=== PATIENT | male | born 1945 | race Caucasian/White ===

== ENCOUNTER 2016-08-28 20:47 | Inpatient (IN) | payer MEDICARE, BC ==
[2016-08-28 21:00] LABS: Glucose,Whole Blood 162 mg/dL (75-99)
--- NOTE | 2016-08-28 21:00 | ED ---
SOB HPI - General Stated Complaint: Difficulty Breathing Time Seen by Provider: 08/28/16 20:49 Source: EMS Mode of arrival: EMS Limitations: altered mental status - History of Present Illness Initial Comments: EMS was called for patient short of breath. On arrival, the patient is acutely dyspneic and not able to give history. MD Complaint: shortness of breath -: unknown Improves With: nothing Worsens With: nothing Treatments Prior to Arrival: oxygen, NIPPV - Related Data Home Medications Medication Instructions Recorded Confirmed Metoprolol Tartrate [Lopressor] 50 mg PO BID 10/09/14 08/28/16 Simvastatin [Zocor] 20 mg PO HS 10/09/14 08/28/16 Ipratropium-Albuterol Nebulize 3 ml INHALATION RT-TID PRN 02/12/16 08/28/16 [Duoneb 0.5 mg-3 mg/3 ml Soln] Ammonium Lactate Cream [Lac-Hydrin 1 applic TOPICAL DAILY 08/28/16 08/28/16 12% Cream] Beclomethasone Dip 80 Mcg/Puff 1 puff INHALATION RT-BID PRN 08/28/16 08/28/16 [Qvar 80 mcg] Ciprofloxacin HCl [Cipro] 500 mg PO BID 08/28/16 08/28/16 Triamcinolone 0.1% Ointment 1 applic TOPICAL DAILY 08/28/16 08/28/16 [Kenalog 0.1% Ointment] Allergies Allergy/AdvReac Type Severity Reaction Status Date / Time Penicillins Allergy Unknown Verified 08/28/16 21:58 Childhood Review of Systems ROS Statement: Those systems with pertinent positive or pertinent negative responses have been documented in the HPI. ROS Other: All systems not noted in ROS Statement are negative. 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 Past Anesthesia/Blood Transfusion Reactions: Previous Problems w/ Anesthesia Additional Past Anesthesia/Blood Transfusion Reaction / Comment(s): "dont wake up very easy from anesthesia" Past Psychological History: No Psychological Hx Reported Smoking Status: Current every day smoker Past Alcohol Use History: None Reported Past Drug Use History: None Reported - Past Family History Mother Family Medical History: Cancer General Exam Limitations: altered mental status General appearance: obtunded, in distress, obese Head exam: Present: atraumatic, normocephalic Eye exam: Present: normal appearance. Absent: scleral icterus, conjunctival injection Neck exam: Present: normal inspection Respiratory exam: Present: respiratory distress, stridor, decreased breath sounds Cardiovascular Exam: Present: normal rhythm, tachycardia, normal heart sounds. Absent: systolic murmur, diastolic murmur, rubs, gallop GI/Abdominal exam: Present: soft, other (Exam limited by obesity). Absent: tenderness, guarding, rebound, mass Extremities exam: Present: normal capillary refill, pedal edema, other (Chronic stasis changes present). Absent: calf tenderness Back exam: Present: normal inspection. Absent: CVA tenderness (R), CVA tenderness (L) Neurological exam: Present: CN II-XII intact, other (Patient is somnolent but arousable to verbal stimuli. He is able to follow simple one step commands. Patient oriented 2 could not state the date.). Absent: motor sensory deficit Skin exam: Present: warm, dry, intact, other (Chronic stasis changes to the legs ). Absent: rash Course Vital Signs 08/28/16 08/28/16 08/28/16 20:56 21:00 21:23 Temperature 96.7 F L Pulse Rate 109 H 106 H Respiratory 22 22 Rate Blood Pressure 150/88 140/67 O2 Sat by Pulse 89 L 97 Oximetry 08/28/16 08/28/16 08/28/16 21:28 21:48 21:58 Temperature Pulse Rate 99 98 97 Respiratory 20 20 Rate Blood Pressure 100/56 107/55 100/60 O2 Sat by Pulse 91 L 91 L Oximetry 08/28/16 08/28/16 08/28/16 22:13 22:43 22:58 Temperature Pulse Rate 94 94 94 Respiratory 20 18 18 Rate Blood Pressure 110/56 107/58 116/64 O2 Sat by Pulse 91 L 91 L 90 L Oximetry 08/28/16 08/28/16 08/29/16 23:18 23:43 01:00 Temperature 100.1 F H 98.7 F Pulse Rate 92 102 H Respiratory 18 22 Rate Blood Pressure 106/56 106/53 O2 Sat by Pulse 92 L 92 L Oximetry 08/29/16 08/29/16 08/29/16 02:20 03:09 04:06 Temperature 99.6 F 98.7 F Pulse Rate 96 94 96 Respiratory 18 20 20 Rate Blood Pressure 90/53 117/72 113/67 O2 Sat by Pulse 86 L 91 L 98 Oximetry - Reevaluation(s) Reevaluation #1: 08/29/16 01:36 Following discussions with the patient's , which included the indications, risks and benefits of intubation, she states that the patient had made clear his belief that he did not want to have any type of machine life-support. I discussed that not intubating the patient at this point would result in his worsening respiratory condition and probably they state that he had made this clear and they agree with his wishes. I have discussed the patient with the solar sales advisor, and patient will be admitted for further treatment of his respiratory failure and pneumonia and COPD. at this point the elevated troponin appears related to patient's CHF. 08/29/16 01:39 Medical Decision Making - Lab Data Result diagrams: 08/28/16 20:57 08/28/16 20:57 Lab Results 08/28/16 08/28/16 08/28/16 Range/Units 20:54 20:57 20:57 WBC 8.3 (3.8-10.6) k/uL RBC 5.96 H (4.30-5.90) m/uL Hgb 18.7 H (13.0-17.5) gm/dL Hct 61.0 H* (39.0-53.0) % MCV 102.2 H (80.0-100.0) fL MCH 31.4 (25.0-35.0) pg MCHC 30.7 L (31.0-37.0) g/dL RDW 14.4 (11.5-15.5) % Plt Count 265 (150-450) k/uL Neutrophils % (Manual) 74.0 % Band Neutrophils % 12.0 % Lymphocytes % (Manual) 3.0 % Monocytes % (Manual) 11.0 % Neutrophils # (Manual) 7.1 (1.3-7.7) k/uL Lymphocytes # (Manual) 0.2 L (1.0-4.8) k/uL Monocytes # (Manual) 0.9 (0-1.0) k/uL Nucleated RBCs 0 (0-0) /100 WBC Manual Slide Review Performed Large Platelets Present Polychromasia Present Hypochromasia Marked Poikilocytosis Slight Macrocytosis Slight D-Dimer (<0.60) mg/L FEU Sample Site ABG pH (7.35-7.45) ABG pCO2 (35-45) mmHg ABG pO2 (83-108) mmHg ABG HCO3 (21-25) mmol/L ABG Total CO2 (19-24) mmol/L ABG O2 Saturation (94-97) % ABG Base Excess mmol/L FiO2 % Sodium 137 (137-145) mmol/L Potassium 5.5 H (3.5-5.1) mmol/L Chloride 95 L (98-107) mmol/L Carbon Dioxide 29 (22-30) mmol/L Anion Gap 13 mmol/L BUN 23 H (9-20) mg/dL Creatinine 1.07 (0.66-1.25) mg/dL Est GFR (MDRD) Af Amer >60 (>60 ml/min/1.73 sqM) Est GFR (MDRD) Non-Af >60 (>60 ml/min/1.73 sqM) Glucose 172 H (74-99) mg/dL POC Glucose (mg/dL) 162 H (75-99) mg/dL POC Glu Rumper ID Lindsay Owen Plasma Lactic Acid Ray (0.7-2.0) mmol/L Calcium 8.7 (8.4-10.2) mg/dL Magnesium 2.0 (1.6-2.3) mg/dL Total Bilirubin 2.3 H (0.2-1.3) mg/dL AST 63 H (17-59) U/L ALT 30 (21-72) U/L Alkaline Phosphatase 63 (38-126) U/L Troponin I (0.000-0.034) ng/mL NT-Pro-B Natriuret Pep pg/mL Total Protein 7.7 (6.3-8.2) g/dL Albumin 3.8 (3.5-5.0) g/dL 05/08/28/16 08/28/16 Range/Units 20:57 20:57 21:25 WBC (3.8-10.6) k/uL RBC (4.30-5.90) m/uL Hgb (13.0-17.5) gm/dL Hct (39.0-53.0) % MCV (80.0-100.0) fL MCH (25.0-35.0) pg MCHC (31.0-37.0) g/dL RDW (11.5-15.5) % Plt Count (150-450) k/uL Neutrophils % (Manual) % Band Neutrophils % % Lymphocytes % (Manual) % Monocytes % (Manual) % Neutrophils # (Manual) (1.3-7.7) k/uL Lymphocytes # (Manual) (1.0-4.8) k/uL Monocytes # (Manual) (0-1.0) k/uL Nucleated RBCs (0-0) /100 WBC Manual Slide Review Large Platelets Polychromasia Hypochromasia Poikilocytosis Macrocytosis D-Dimer (<0.60) mg/L FEU Sample Site rrad ABG pH 7.22 L (7.35-7.45) ABG pCO2 79 H* (35-45) mmHg ABG pO2 66 L (83-108) mmHg ABG HCO3 32 H (21-25) mmol/L ABG Total CO2 34 H (19-24) mmol/L ABG O2 Saturation 87.0 L (94-97) % ABG Base Excess 4.4 mmol/L FiO2 60 % Sodium (137-145) mmol/L Potassium (3.5-5.1) mmol/L Chloride (98-107) mmol/L Carbon Dioxide (22-30) mmol/L Anion Gap mmol/L BUN (9-20) mg/dL Creatinine (0.66-1.25) mg/dL Est GFR (MDRD) Af Amer (>60 ml/min/1.73 sqM) Est GFR (MDRD) Non-Af (>60 ml/min/1.73 sqM) Glucose (74-99) mg/dL POC Glucose (mg/dL) (75-99) mg/dL POC Glu Rumper ID Plasma Lactic Acid Ray (0.7-2.0) mmol/L Calcium (8.4-10.2) mg/dL Magnesium (1.6-2.3) mg/dL Total Bilirubin (0.2-1.3) mg/dL AST (17-59) U/L ALT (21-72) U/L Alkaline Phosphatase (38-126) U/L Troponin I 0.156 H* (0.000-0.034) ng/mL NT-Pro-B Natriuret Pep 4840 pg/mL Total Protein (6.3-8.2) g/dL Albumin (3.5-5.0) g/dL 08/28/16 08/29/16 08/29/16 Range/Units 21:58 01:10 01:34 WBC (3.8-10.6) k/uL RBC (4.30-5.90) m/uL Hgb (13.0-17.5) gm/dL Hct (39.0-53.0) % MCV (80.0-100.0) fL MCH (25.0-35.0) pg MCHC (31.0-37.0) g/dL RDW (11.5-15.5) % Plt Count (150-450) k/uL Neutrophils % (Manual) % Band Neutrophils % % Lymphocytes % (Manual) % Monocytes % (Manual) % Neutrophils # (Manual) (1.3-7.7) k/uL Lymphocytes # (Manual) (1.0-4.8) k/uL Monocytes # (Manual) (0-1.0) k/uL Nucleated RBCs (0-0) /100 WBC Manual Slide Review Large Platelets Polychromasia Hypochromasia Poikilocytosis Macrocytosis D-Dimer 1.64 H (<0.60) mg/L FEU Sample Site RIGHT RADIAL ABG pH 7.10 L* (7.35-7.45) ABG pCO2 106 H* (35-45) mmHg ABG pO2 87 (83-108) mmHg ABG HCO3 32 H (21-25) mmol/L ABG Total CO2 35 H (19-24) mmol/L ABG O2 Saturation 91.0 L (94-97) % ABG Base Excess 2.6 mmol/L FiO2 100 % Sodium (137-145) mmol/L Potassium (3.5-5.1) mmol/L Chloride (98-107) mmol/L Carbon Dioxide (22-30) mmol/L Anion Gap mmol/L BUN (9-20) mg/dL Creatinine (0.66-1.25) mg/dL Est GFR (MDRD) Af Amer (>60 ml/min/1.73 sqM) Est GFR (MDRD) Non-Af (>60 ml/min/1.73 sqM) Glucose (74-99) mg/dL POC Glucose (mg/dL) (75-99) mg/dL POC Glu Rumper ID Plasma Lactic Acid Ray 1.4 (0.7-2.0) mmol/L Calcium (8.4-10.2) mg/dL Magnesium (1.6-2.3) mg/dL Total Bilirubin (0.2-1.3) mg/dL AST (17-59) U/L ALT (21-72) U/L Alkaline Phosphatase (38-126) U/L Troponin I (0.000-0.034) ng/mL NT-Pro-B Natriuret Pep pg/mL Total Protein (6.3-8.2) g/dL Albumin (3.5-5.0) g/dL - EKG Data -: EKG Interpreted by Vt EKG shows normal: sinus rhythm, axis (Normal), intervals (The QT see is prolonged at 570 ms.), QRS complexes (Normal) Rate: tachycardia (Rate approximately 109 bpm) Interpretation: nonspecific ST-T wave changes Critical Care Time Critical Care Time: Yes (35 minutes) Disposition Clinical Impression: Congestive heart failure, Pneumonia, Respiratory failure, Polycythemia, Hyperkalemia, Elevated troponin I level Disposition: ADMITTED IP TO THIS HOSP Condition: Critical
[2016-08-28 21:08] LABS: Aty Lym Flag Slight; CH 30.9; CHCM 30.4; HDW 3.41; HGB 18.7 gm/dL (13.0-17.5); Hypochromasia Marked; MCH 31.4 pg (25.0-35.0); MCHC 30.7 g/dL (31.0-37.0); MCV 102.2 fL (80.0-100.0); Macrocytosis Slight; Poikilocytosis Slight; RBC 5.96 m/uL (4.30-5.90); RDW 14.4 % (11.5-15.5); WBC 8.3 k/uL (3.8-10.6)
--- NOTE | 2016-08-28 21:24 | XR ---
EXAMINATION TYPE: XR chest 1V portable DATE OF EXAM: 08/28/2016 9:16 PM COMPARISON: 03/19/2011 HISTORY: Difficulty breathing TECHNIQUE: Single frontal view of the chest is obtained. FINDINGS: Heart appears enlarged. There is some pulmonary vascular congestion. There is coarsening o f interstitial markings. Thoracic aorta is atheromatous. There are chest leads. IMPRESSION: There is probably congestive heart failure. Pulmonary fibrotic changes. Pelvic congestio n appears worse than old exam. There is clearing of some consolidation at the left lung base compared to old exam.
[2016-08-28] MEDS ORDERED: NITROGLYCERIN OINT 1 INCH/GM PACKET TOPICAL STA (21:26)
[2016-08-28 21:27] LABS: ALT 30 U/L (21-72); AST 63 U/L (17-59); Alkaline Phosphatase 63 U/L (38-126); Anion Gap 13 mmol/L; Blood Urea Nitrogen 23 mg/dL (9-20); Calcium 8.7 mg/dL (8.4-10.2); Carbon Dioxide 29 mmol/L (22-30); Chloride 95 mmol/L (98-107); Glucose 172 mg/dL (74-99); Non-African American GFR(MDRD) >60 (>60 ml/min/1.73 sqM); Sodium 137 mmol/L (137-145); Total Bilirubin 2.3 mg/dL (0.2-1.3); Total Protein 7.7 g/dL (6.3-8.2)
[2016-08-28] MEDS ORDERED: FUROSEMIDE 10 MG/ML 10 ML VIAL IV STA (21:27)
[2016-08-28] MEDS ORDERED: FUROSEMIDE 10 MG/ML 4 ML VIAL IV STA (21:27)
[2016-08-28] MEDS ORDERED: MORPHINE SULFATE 4 MG/ML SYRINGE IV STA (21:27)
[2016-08-28 21:29] LABS: Potassium 5.5 mmol/L (3.5-5.1)
[2016-08-28 21:47] LABS: Add Differential Manual Differential
[2016-08-28 21:49] LABS: Nucleated Red Blood Cells 0 /100 WBC (0-0); Total Cells Counted 100
[2016-08-28 21:49] LABS: ABG Base Excess 4.4 mmol/L; ABG HCO3 32 mmol/L (21-25); ABG PCO2 79 mmHg (35-45); ABG PH 7.22 (7.35-7.45); ABG PO2 66 mmHg (83-108); ABG TCO2 34 mmol/L (19-24)
[2016-08-28 21:50] LABS: Large Platelets Present; Manual Review Performed; Polychromasia Present
[2016-08-28] MEDS ORDERED: ENOXAPARIN 150 MG/ML SYRINGE SQ STA (23:24)
[2016-08-28] MEDS ORDERED: RX INFO: IV CONTRAST WAS GIVEN 1 EACH MISC MISCELLANE PRN (23:42)
--- NOTE | 2016-08-29 00:48 | CT ---
EXAM: CT Chest With Intravenous Contrast CLINICAL HISTORY: Reason: Pain TECHNIQUE: Axial computed tomography images of the chest with intravenous contrast during the arterial phase of enhancement. CTDI is 10.4, 40.7, 30.9 mGy and DLP is 1237.9 mGy-cm. This CT exam was performed using one or more of the following dose reduction techniques: automated exposure control, adjustment of the mA and/or kV according to patient size, and/or use of iterative reconstruction technique. COMPARISON: CT chest dated 08/09/2014 FINDINGS: Pulmonary arteries: No definite evidence of pulmonary embolus. However, findings are limited secondary to lack of appropriate opacification of the pulmonary arteries. Aorta: No acute findings. No thoracic aortic aneurysm. Lungs: Nodular opacities within the right upper lobe and right middle lobe with consolidation within the lower lobes. Centrilobular emphysema. Pleural space: Unremarkable. No significant effusion. No pneumothorax. Heart: The heart and pericardium are unremarkable. Coronary artery calcifications. No evidence of RV dysfunction. Bones/joints: No acute fracture. No dislocation. Soft tissues: Unremarkable. Lymph nodes: Subcentimeter mediastinal and hilar lymph nodes, likely reactive. Gallbladder and bile ducts: The gallbladder is surgically absent. Kidneys and ureters: Simple cyst within left kidney. IMPRESSION: 1. No definite evidence of pulmonary embolus. However, findings are limited secondary to lack of appropriate opacification of the pulmonary arteries. 2. Nodular opacities within the right upper lobe and right middle lobe with consolidation within the lower lobes. Findings likely represent multifocal pneumonia.
[2016-08-29] MEDS ORDERED: ALBUTEROL NEBULIZED 2.5 MG/3 ML INHALATION PRN (01:02)
[2016-08-29] MEDS ORDERED: PNEUMONIA PROTOCOL UTILIZED 1 EACH MISC PO PRN (01:02)
[2016-08-29] MEDS ORDERED: LEVOFLOXACIN 750MG-D5W PMX 750 MG in DEXTROSE/WATER 1 150ML.BAG IVPB STA (01:02)
[2016-08-29] MEDS ORDERED: PIPERACILLIN-TAZOBACTAM 3.375 GM in DEXTROSE/WATER 1 50ML.BAG IVPB STA (01:02)
[2016-08-29 02:06] LABS: ABG Base Excess 2.6 mmol/L; ABG HCO3 32 mmol/L (21-25); ABG PCO2 106 mmHg (35-45); ABG PO2 87 mmHg (83-108); ABG TCO2 35 mmol/L (19-24)
[2016-08-29 04:07] VITALS: TEMP 98.7
[2016-08-29 04:59] LABS: Glucose,Whole Blood 158 mg/dL (75-99)
[2016-08-29] MEDS: IPRATROPIUM-ALBUTEROL 3 ML NEB INHALATION SCH ×2 (05:26→08:05)
[2016-08-29] MEDS ORDERED: ATROPINE OPHTH SOLN 1% 5ML BTL SUBLINGUAL PRN (05:50)
[2016-08-29] MEDS ORDERED: LORazepam 2 MG/ML SYRINGE IV PRN (05:50)
[2016-08-29] MEDS ORDERED: MORPHINE SULFATE 4 MG/ML SYRINGE IV PRN (05:50)
[2016-08-29] MEDS ORDERED: ONDANSETRON 4 MG/2 ML VIAL IVP PRN (05:50)
[2016-08-29] MEDS ORDERED: SCOPOLAMINE 1.5MG/72HR PATCH TRANSDERM PRN (05:50)
[2016-08-29] MEDS ORDERED: MORPHINE SULFATE (100 MG/2 ML) 100 MG in SODIUM CHLORIDE 0.9% 100 ML IV SCH (06:00)
[2016-08-29] MEDS ORDERED: HEPARIN SODIUM,PORCINE 5,000 UNIT/ML 1 ML VIAL SQ SCH (08:00)
[2016-08-29 09:14] VITALS: BP 113/62; PULSE 116; RESP 26
[2016-08-29] MEDS ORDERED: PIPERACILLIN-TAZOBACTAM 3.375 GM in DEXTROSE/WATER 1 50ML.BAG IVPB SCH (12:00)
--- NOTE | 2016-08-29 13:58 | HP ---
DATE OF ADMISSION: CHIEF COMPLAINT: Shortness of breath. HISTORY OF PRESENT ILLNESS: This 70-year-old gentleman with a past medical history of multiple medical problems admitted with CHF acute exacerbation, acute respiratory failure. The patient had acute respiratory failure. The patient was recommended intubation, but, however, the refused intubation in the ER and the patient was made comfort measures. However, the patient was admitted and the patient succumbed because of the above illness before ace seen. Please refer to the ER notes and staff notes for further details. FINAL DIAGNOSES: 1. Congestive heart failure acute exacerbation. 2. Pneumonia. 3. Acute respiratory failure. MTDD
--- NOTE | 2016-08-29 14:00 | DS ---
DATE OF ADMISSION: 08/29/2016 DATE OF DISCHARGE: 08/29/2016 FINAL DIAGNOSES: 1. The preliminary cause of is congestive heart failure acute exacerbation, ejection fraction unknown with acute hypoxic respiratory failure. 2. Chronic obstructive pulmonary disease. 3. Hypertension. 4. Hyperlipidemia. 5. Methicillin-resistant Staphylococcus aureus. 6. Cholecystectomy. 7. Hypokalemia. 8. Acute hypoxic hypercarbic respiratory failure. 9. Elevated troponin of 0.156. HISTORY OF PRESENT ILLNESS: This is a 70-year-old gentleman with a past medical history of multiple medical problems admitted with shortness of breath with CHF acute exacerbation with acute hypoxic hypercarbic respiratory failure. The patient was recommended intubation in the ER and the and the family refused intubation and made the patient comfort measures. However, the patient was admitted and the patient later succumbed to his above-mentioned complex medical issues. Prognosis remained extremely guarded throughout the hospitalization. Please refer to the ER notes and staff notes for further details. The patient succumbed to his illness before being seen.
[2016-08-29] MEDS ORDERED: LEVOFLOXACIN 750MG-D5W PMX 750 MG in DEXTROSE/WATER 1 150ML.BAG IVPB SCH (23:00)
== END 2016-08-29 12:35 | disposition expired | DRG 291 ==
LOC: EC 20:47 → 6ICU 08-29 01:38
PROVIDERS: ADMIT Internal Medicine; ATTEND Internal Medicine
DX: I11.0 Hypertensive heart disease with heart failure (principal); J96.01 Acute respiratory failure with hypoxia; J96.02 Acute respiratory failure with hypercapnia; J18.9 Pneumonia, unspecified organism; E87.5 Hyperkalemia; D75.1 Secondary polycythemia; J44.0 Chronic obstructive pulmonary disease with (acute) lower respiratory infection; I50.9 Heart failure, unspecified; E78.5 Hyperlipidemia, unspecified; Z90.49 Acquired absence of other specified parts of digestive tract; Z51.5 Encounter for palliative care; Z79.899 Other long term (current) drug therapy; F17.200 Nicotine dependence, unspecified, uncomplicated; I71.4 Abdominal aortic aneurysm, without rupture
CPT/HCPCS: 36415; 36600; 71010; 71275; 80053; 82805; 83605; 83735; 83880; 84484; 85025; 85379; 87040; 93005; 94640; 94660